=== PATIENT | female | born 1980 | race Hispanic/Latino ===

== ENCOUNTER 2024-06-09 11:19 | Emergency (ER) | payer OTHER ==
[~2024-06-09] VITALS: Ht 157.5 cm; Wt 68.0 kg
[2024-06-09 11:49] VITALS: TEMP 98.7
[2024-06-09] MEDS ORDERED: ORPHENADRINE CITRATE 30 MG/ML VIAL ONE (14:47)
[2024-06-09] MEDS: ORPHENADRINE CITRATE 30 MG/ML VIAL IM ONE (15:00)
[2024-06-09 15:06] VITALS: PULSE 73; RESP 16; O2SAT 100
[2024-06-09] MEDS ORDERED: METHOCARBAMOL750 MG PO (15:18)
== END 2024-06-09 15:20 | disposition home or self-care (01) ==
LOC: ER 11:59
DX: M54.50 Low back pain, unspecified (principal); G89.29 Other chronic pain; R51.9 Headache, unspecified; W18.39XA Other fall on same level, initial encounter; Y99.0 Civilian activity done for income or pay; K76.9 Liver disease, unspecified; F41.9 Anxiety disorder, unspecified; F32.A Depression, unspecified
CPT/HCPCS: 70450; 72131; 99283; J2360